=== PATIENT | male | born 1985 | race Two or more races ===

== ENCOUNTER → 2017-09-29 | Emergency (ER) | payer MEDICAID ==
[~2017-09-29] VITALS: Ht 165.1 cm; Wt 61.2 kg
[~2017-09-29] MED LIST: AMOX-419 PO
[2017-09-29 08:39] VITALS: BP 105/66
== END | disposition home or self-care (01) ==
LOC: ER 08:04
DX: J32.9 Chronic sinusitis, unspecified (principal)
CPT/HCPCS: 99283